=== PATIENT | male | born 1970 | race Asian ===

== ENCOUNTER 2025-08-21 23:31 | Emergency (ER) | payer MEDICAID, SELFPAY ==
[2025-08-21 23:39] VITALS: BP 167/114; PULSE 94; RESP 16; TEMP 37; O2SAT 98; BMI 21.3
--- NOTE | 2025-08-21 23:52 | ED_ITS ---
HPI - Eye Problem General Time Seen by Provider: 23:52 Date Seen: 08/21/25 Chief complaint: Eye Problems Stated complaint: vision is blurry/painful Time Seen by Provider: 08/21/25 23:52 Source: patient, family and spot welder (family interpreting) Mode of arrival: ambulatory History of Present Illness HPI Narrative: Jaspal is a 55-year-old male reports no significant past medical history presents to the emergency department for evaluation of bilateral eye pain and vision changes. Patient presents tonight with his daughter and son-in-law who are interpreting for him. Patient states that he went to bed around 9:00 p.m. feeling fine however woke up around 11:00 p.m. with severe bilateral eye pain and blurry vision. Patient reports he has pain in both of his eyes as well as a sandpaper fraction like pain when he blinks and tries to open his eyes. Patient reports symptoms are improved when closing his eyes. Patient does not were glasses or contacts. Patient also reports he feels as if his face around his eyes is red and swollen. Patient denies any trauma, injury. Denies any headache, neck pain, weakness, paresthesias, chest pain, shortness of breath, abdominal pain, no other complaints. Related Data Home Medications ?Medication ?Instructions ?Recorded ?Confirmed No Known Home Medications 08/21/2512/11 Allergies Allergy/AdvReac Type Severity Reaction Status Date / Time No Known Drug Allergies Allergy Verified 08/21/25 23:47 Review of Systems Narrative: Past medical history, past surgical history, medications, allergies, family history, and social history were reviewed with the patient. No additional pertinent items. A medically appropriate review of systems was performed with pertinent positives and negatives noted in HPI, all other systems negative. Exam Narrative: Exam Narrative: General: Afebrile, in distress secondary to pain HEENT: Normocephalic, atraumatic, Bilateral eyes and surrounding area with erythema, swelling, teary/watery eyes bilaterally, chemosis of conjunctiva, no evidence of foreign body. PERRL, EOMI, no worsening pain with EOM. Neck: non-tender, supple Cardio: regular rate. regular rhythm Resp: Normal work of breathing, no respiratory distress, lungs clear bilaterally, no wheezing, rhonchi, rales Chest/Back: no visual signs of trauma, no midline tenderness, no CVA tenderness Abdomen: soft, non distension, no tenderness, no peritoneal signs Neuro: alert and fully oriented. CN II-XII grossly intact. Grossly normal strength and sensation in all extremities. MSK: no deformities. Normal range of motion Integumentary/Skin: no rash visualized, normal color Psych: normal affect, normal behavior Const: Vital Signs, click to edit/add: Vital Signs - 24 hr 08/21/25 23:39 Temperature 98.6 F Pulse Rate [Pulse Oximeter] 94 Respiratory Rate 16 Blood Pressure [Ri t Upper Arm] 167/114 H Pulse Oximetry 98 Oxygen Delivery Me thod Room Air Course Vital Signs Vital signs: Initial Vital Signs Temperature 98.6 F 08/21/25 23:39 Temperature Source Temporal Artery Scan 08/21/25 23:39 Pulse Rate 94 08/21/25 23:39 Respiratory Rate 16 08/21/25 23:39 Blood Pressure 167/114 H 08/21/25 23:39 Blood Pressure Mean 131 H 08/21/25 23:39 Blood Pressure Position Sitting 08/21/25 23:39 Pulse Oximetry 98 08/21/25 23:39 Oxygen Delivery Method Room Air 08/21/25 23:39 Vital Signs Temperature 98.6 F 08/21/25 23:39 Pulse Rate 94 08/21/25 23:39 Respiratory Rate 16 08/21/25 23:39 Blood Pressure 167/114 H 08/21/25 23:39 Pulse Oximetry 98 08/21/25 23:39 Oxygen Delivery Method Room Air 08/21/25 23:39 Temperature 98.6 F 08/21/25 23:39 Pulse Rate 94 08/21/25 23:39 Respiratory Rate 16 08/21/25 23:39 Blood Pressure 167/114 H 08/21/25 23:39 Pulse Oximetry 98 08/21/25 23:39 Oxygen Delivery Method Room Air 08/21/25 23:39 MDM - Eye Problem MDM Narrative Medical decision making narrative: Jaspal is a 55-year-old male reports no significant past medical history presents to the emergency department for evaluation of bilateral eye pain and vision changes. Upon arrival patient is ill but nontoxic appearing, afebrile, in distress. Patient hypertensive upon arrival with blood pressure 167/114, heart rate 94, oxygen 98% on room air. Differential diagnosis includes but is not limited to viral conjunctivitis versus allergic conjunctivitis versus dry eye versus uveitis versus corneal abrasion versus marine structural welder's photo keratitis among others. Symptoms are bilateral in nature. On physical exam patient with eyelid and facial erythema and edema as well as tearing, chemosis, blurry vision. Patient was treated with tetracaine upon arrival with significant improvement of pain. On fluorescein staining there is bilateral superficial difuse punctate keratitis. 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 Patient reports feeling fine until suddenly waking up with severe eye pain, blurry vision, as well as that Gritty/friction/foreign body sensation. (Delayed symptoms also consistent with welders photokeratitis). Patient was treated with a dose of oxycodone, flurbiprofen as well as erythromycin ophthalmic ointment. I did attempt to page the on-call centrifugal spinner at [facility] however did not return a call back. Patient and family feel comfortable discharge home, discussed con tinued supportive care and symptoms should improve over the next few days. Recommend following up with Ophthalmology in clinic for complete/formal eye examination later today. Since I was unable to get in touch with Ophthalmology Clinic at 0100am patient and family feel comfortable with discharge and will call the clinic 1st thing in the morning to arrange a follow-up appointment. Will continue erythromycin ophthalmic ointment every 6 hours for the next 3-5 days (or otherwise instructed by Ophthalmology). Strict return precautions discussed. Patient and family understand agree with plan. Medical Records Attestation: I reviewed the patient's medical records. Discharge Plan Discharge Clinical Impression: Pain of both eyes, Blurred vision, bilateral, Welders' keratitis of both eyes Patient Disposition: Home, Self-Care Condition: Improved Additional Instructions: Please follow-up at [facility] later today for follow-up in complete eye examination. We were unable to get a hold of them this morning so please call the clinic when they open at 8:00 a.m. to make an appointment. Let them know you were in the emergency department overnight and needed a follow-up appointment/eye examination. [phone] Please alternate taking Tylenol 1000 mg and ibuprofen 600 mg every 6 hours as needed for pain. Please apply antibiotic ointment to both eyes 4 times a day (every 6 hours) for the next 3-5 days or as otherwise instructed by Ophthalmology. Please return to the emergency department if any worsening symptoms. Please make sure you wear safety goggles while you work. It was a pleasure taking care of you today. We hope you feel better soon. Prescriptions: No Action No Known Home Medications Stand Alone Forms: [employer] Info Instructions
--- NOTE | 2025-08-22 00:20 | ED.NURSE ---
Visual acuity performed on pt (before eye drops) and pt could not see anything on the eye chart, out of either eye. Visual acuity performed on pt after eye drops and pt could not see anything on the eye chart.
--- OUTSIDE RECORDS SUMMARY | 2025-08-22 00:37 | XMS_ITS | Encounter Summary ---
Author Organization [employer] Address [address] [place] [id number] Care Team Providers Care Scraper Meat Name Role Phone Jude Zaman MD Unavailable Ted Rapp MD Unavailable [phone] Desirae Elam MD Primary Care Provider [phone] Saleem Bush MD Unavailable [phone] Desirae Elam MD Unavailable Gianna Pascual MD Unavailable Desirae Elam MD Unavailable Encounter Details Date Type Department Care Team (Late st Contact Info) Description 02/19/2009 Records - [facility] CONVERSION Scan, Non-Provider Social History Tobacco Use Types Packs/Day Years Used Date Smoking Tobacco: Never Assessed Sex and Gender Information Value Date Recorded Sex Assigned at Not on file Legal Sex Male 5:38 PM CDT Gender Identity Not on file Sexual Orientation Not on file documented as of this encounter Plan of Treatment Not on file documented as of this encounter Visit Diagnoses Not on filedocumented in this encounter Care Teams Scraper Meat Relationship Specialty Start Date End Date Desirae Elam MD [address] [place] [address] PCP - General Family Practice 01/22/15 Jude Zaman [place] [facility] [place] [id number] Assigned Surgical Provider 04/03/21 Ted Rapp MD [address] [place] [id number] Assigned PCP 03/04/21 01/30/22 Saleem Bush MD [address] [place] [id number] Assigned PCP 01/31/22 10/22/22 Desirae Elam MD [address] [place] [id number] Assigned PCP 10/23/22 05/10/24 Gianna Pascual MD [address] [place] [id number] Assigned PCP 05/11/24 05/10/25 Desirae Elam MD [address] [place] [id number] Assigned PCP 05/11/25 documented as of this encounter
--- OUTSIDE RECORDS SUMMARY | 2025-08-22 00:37 | XMS_ITS | Encounter Summary ---
Author Organization [facility] Address [address] [place] [address] Care Team Providers Care Pierce And Shave Press Operator Name Role Phone Jude Zaman MD Unavailable Ted Rapp MD Unavailable [phone] Desirae Elam MD Primary Care Provider [phone] Saleem Bush MD Unavailable [phone] Desirae Elam MD Unavailable Gianna Pascual MD Unavailable Desirae Elam MD Unavailable Encounter Details Date Type Department Care Team (Late st Contact Info) Description 02/23/2021 Records - [facility] CONVERSION Scan, Non-Provider Social History Tobacco Use Types Packs/Day Years Used Date Smoking Tobacco: Never Smokeless Tobacco: Never Alcohol Use Standard Drinks/Week Comments No 0 (1 standard drink = 0.6 oz pur e alcohol) PHQ-2 Answer Date Recorded PHQ-2 Score 0 04/09/2020 Sex and Gender Information Value Date Recorded Sex Assigned at Not on file Legal Sex Male 5:38 PM CDT Gender Identity Not on file Sexual Orientation Not on file documented as of this encounter Plan of Treatment Not on file documented as of this encounter Procedures Procedure Name Priority Date/Time Associated Diagnosis Comments AUDIOGRAM/ABR/OAE/TYPM - HIM SCAN 02/23/2021 documented in this encounter Results * AUDIOGRAM/ABR/OAE/TYPM - HIM SCAN (02/23/2021) us Historical Provider PROCEDURES Final Result documented in this encounter Visit Diagnoses Not on filedocumented in this encounter Care Teams Pierce [employer] Shave Press Operator Relationship Specialty Start Date End Date Desirae Elam MD [address] [place] [phone] PCP - General Family Practice 01/22/15 Jude Zaman MD [address] [place] [address] Assigned Surgical Provider 04/03/21 Ted Rapp MD [address] [place] [phone] Assigned PCP 03/04/21 01/30/22 Saleem Bush MD [address] [place] [id number] Assigned PCP 01/31/22 10/22/22 Desirae Elam MD [address] [place] [id number] Assigned PCP 10/23/22 05/10/24 Gianna Pascual MD [address] [place] [address] [id number] Assigned PCP 05/11/24 05/10/25 Desirae Elam MD [address] [place] [id number] Assigned PCP 05/11/25 documented as of this encounter
--- OUTSIDE RECORDS SUMMARY | 2025-08-22 00:37 | XMS_ITS | Clinical Summary ---
Author Organization Portal Address [address] [place] [address] Care Team Providers Care Cloth Shearer Name Role Phone Desirae Elam MD Primary Care Provider [phone] Desirae Elam MD Unavailable Allergies No known active allergies Medications acetaminophen (TYLENOL) 500 MG tabletIndication s:Chronic low back pain, unspecified back pain laterality, unspecified whether sciatica present Take 2 tablets (1,000 mg) by mouth every 6 hours as needed for mild pain 200 tablet 2 10/15/2022 Active vitamin D3 (CHOLECALCIFEROL ) 50 mcg (2000 units) tabletIndication s:Vitamin D deficiency Take 1 tablet (50 mcg) by mouth daily 90 tablet 4 11/09/2023 Active Active Problems Problem Noted Date Diagnosed Date Hyperlipidemia LDL goal <130 03/02/2018 Headache 02/09/2017 H/O traumatic brain injury 10/09/2015 Vitamin D Deficiency Overview (03/20/2021): Created by [employer] updated for latest IMO load Memory Lapses Or Loss Overview (03/20/2021): Created by [employer] [facility] Annotation: Dec 08 2010 1:58PM - Jacqueline Thorne: Refered to Traumatic Brain Injury clinic for eval Post-traumatic Stress Disorder Overview (03/03/2021): Created by [employer] Upper Back Pain (Between Shoulder Blades) Overview (03/03/2021): Created by Conversion Lower Back Pain Chronic Overview (03/03/2021): Created by [employer] Resolved Problems Problem Noted Date Diagnosed Date Resolved Date Pituitary adenoma 02/09/2017 10/15/2022 ED (erectile dysfunction) 02/09/2017 Immunizations Immunization Administration Dates Next Due COVID-19 12+ (Pfizer) 11/09/2023 COVID-19 Bivalent 12+ (Pfizer) 08/28/2022 COVID-19 MONOVALENT 12+ (Pfizer) 08/07/2021 COVID-19 Monovalent 18+ (Moderna) 12/31/2020, Flu, Unspecified 06/19/2013, 1,06/25/2010,2009 Hepatitis A (VAQTA)(ADULT 19+) 08/09/2013 Hepatitis A Immunity: Titer/MD Dx 01/24/2015 Hepatitis B Immunity: Titer 01/22/2015 Influenza (H1N1) 10/09/2009 Influenza Vaccine (Flucelvax Quadrivalent) 09/07/2021 Influenza Vaccine 18-64 (Flublok) 10/15/2022 Influenza Vaccine >6 months,quad, PF 06/08/2019, 07/19/2018,06/26/2016 Influenza Vaccine, 6+MO IM (QUADRIVALENT W/PRESERVATIVES) 08/10/2017,07/31/2015,06/28/2014,2011 MMR (MMRII) 09/02/2011 TDAP (Adacel,Boostrix) 10/15/2022,2021(Deferred: Other refusal),03/24/2009 Td,adult,historic,unspecified 09/02/2011 Typhoid IM 10/15/2022 Family History Medical History Relation Comments No Known Problems Brother No Known Problems Father No Known Problems Mother No Known Problems Sister Cancer No family hx of Diabetes No family hx of Heart Disease No family hx of Hyperlipidemia No family hx of Hypertension No family hx of Kidney Disease No family hx of Relation Status Comments Brother Father Mother Sister Social History Tobacco Use Types Packs/Day Years Used Date Smoking Tobacco: Never Smokeless Tobacco: Never Alcohol Use Standard Drinks/Week Comments No 0 (1 standard drink = 0.6 oz pur e alcohol) PHQ-2 Answer Date Recorded PHQ-2 Score 0 11/09/2023 Adolescent Education Answer Date Record ed Getting School Help Needed Not on file 06/11 Sex and Gender Information Value Date Recorded Sex Assigned at Not on file Legal Sex Male 5:38 PM CDT Gender Identity Not on file Sexual Orientation Not on file Last Filed Vital Signs Vital Sign Reading Time Taken Comments Blood Pressure 123/83 11/09/2023 7:15 AM LITHOGRAPHER HELPER Pulse 75 11/09/2023 7:15 AM LITHOGRAPHER HELPER Temperature 37 C (98.6 F) 11/09/2023 7:15 AM LITHOGRAPHER HELPER Respiratory Rate 18 11/09/2023 7:15 AM LITHOGRAPHER HELPER Oxygen Saturation 98% 11/09/2023 7:15 AM LITHOGRAPHER HELPER Inhaled Oxygen Concentration - - Weight 51.3 kg (113 lb) 11/09/2023 7:15 AM LITHOGRAPHER HELPER Height 156.7 cm (5' 1.69) 11/09/2023 7:15 AM CS T Body Mass Index 20.87 11/09/2023 7:15 AM LITHOGRAPHER HELPER Plan of Treatment Health Maintenance Due Date Last Done Comments CT COLONOGRAPHY 1972 FIT 1972 FLEX SIG 1972 PNEUMOCOCCAL VACCINE 50+ YEARS (1 of 1 - PCV) 2022 ZOSTER VACCINE (1 of 2) 2022 COLONOSCOPY 10/04/2023 10/04/2013 YEARLY PREVENTIVE VISIT 10/15/2023 10/15/19 23, 01/22/2015, 01/22/2015 PHQ-2 (once per calendar year) 2024 11/09/2023, 10/15/2022, 01/21/2022, Additional history exists ANNUAL REVIEW OF HM ORDERS 11/09/2024 11/09/2023, LIPID 11/09/2024 11/09/2023, 05/0 01/2022, 02/09/2017, Additional history exists COVID-19 VACCINE ( season) 2025 11/09/2023, 08/28/2022, 08/07/2021, Additional history exists INFLUENZA VACCINE (#1) 2025 , 09/07/2021, 06/08/2019, Additional history exists DIABETES SCREENING 11/09/2026 11/09/2023, 0 11/09/2023, 01/21/2022, Additional history exists COLORECTAL CANCER SCREENING 06/25/2027 sDNA (Cologuard) 06/25/2027 06/25/2024, , 12/12/2023 ADVANCE CARE PLANNING 10/17/2027 10/17/2022 DTAP/TDAP/TD VACCINE (4 - Td or Tdap) 10/15/2032 10/15/2022, 09/02/2011, 03/24/2009 HEPATITIS B VACCINE Discontinued 01/22/2015 HEPATITIS C SCREENING Completed 10/09/2015, 009 HIV SCREENING Completed 01/21/2022 HPV VACCINE (No Doses Required) Completed MENINGITIS VACCINE Aged Out No longer eligible based on patient's age to complete this topic Procedures Procedure Name Priority Date/Time Associated Diagnosis Comments COLOGUARD(Moki [employer] formerly [employer]) Routine 12/12/2023 7:30 AM CDT Screen for colon cancer HEMOGLOBIN A1C Routine 11/09/2023 8:19 AM LITHOGRAPHER HELPER Unintended weight loss LIPID REFLEX TO DIRECT LDL PANEL Routine 11/09/2023 8:19 AM LITHOGRAPHER HELPER Hyperlipidemia LDL goal <130 HIV ANTIGEN ANTIBODY COMBO Routine 01/21/2022 2:49 PM CDT Screening for HIV (human immunodeficiency virus) HEPATITIS C ANTIBODY Routine 10/09/2015 10:25 AM LITHOGRAPHER HELPER COLONOSCOPY Routine 10/04/2013 12:00 AM LITHOGRAPHER HELPER from Last 3 Months or Most Recently Relevant to Health Maintenance Results * COLOGUARD(Moki - formerly [employer]) (12/12/2023 7:30 AM CDT) COLOGUARD-ABSTRACT Negative Negative 2023 2:26 AM CDT [facility] (CLIA #:[id number]) Comment: NEGATIVE TEST RESULT. A negative Cologuard result indicates a low likelihood that a colorectal cancer (CRC) or advanced adenoma (adenomatous polyps with more advanced pre-malignant features) is present. The chance that a person with a negative Cologuard test has a colorectal cancer is less than 1 in 1500 (negative predictive value >99.9%) or has an advanced adenoma is less than 5.3% (negative predictive value 94.7%). These data are based on a prospective cross-sectional study of 10,000 individuals at average risk for colorectal cancer who were screened with both Cologuard and colonoscopy. (Myra Briggs et al, N Engl J Med 2014;370(14):6402-6110) The normal value (reference range) for this assay is negative. COLOGUARD RE-SCREENING RECOMMENDATION: Periodic colorectal cancer screening is an important part of preventive healthcare for asymptomatic individuals at average risk for colorectal cancer. Following a negative Cologuard result, the [place] [employer] and U.S. Multi-Society Task Force screening guidelines recommend a Cologuard re-screening interval of 3 years. References: [place] [employer] Guideline for Colorectal Cancer Screening: https://www.cancer.org/cancer/jkaoh-jfztfk-jgbvfb/ickgltncc-nunttdofb-swtmmpk/ac s-rec ommendations.html.; Horace DK, Jameson GAY, Fernanda AnnK, Colorectal Cancer Screening: Recommendations for Physicians and Patients from the U.S. Multi-Society Task Force on Colorectal Cancer Screening , Am J Gastroenterology 2017; 112:1820-4282. TEST DESCRIPTION: Composite algorithmic analysis of stool DNA-biomarkers with hemoglobin immunoassay. Quantitative values of individual biomarkers are not reportable and are not associated with individual biomarker result reference ranges. Cologuard is intended for colorectal cancer screening of adults of either sex, 45 years or older, who are at average-risk for colorectal cancer (CRC). Cologuard has been approved for use by the U.S. FDA. The performance of Cologuard was established in a cross sectional study of average-risk adults aged 50-84. Cologuard performance in patients ages 45 to 49 years was estimated by sub-group analysis of near-age groups. Colonoscopies performed for a positive result may find as the most clinically significant lesion: colorectal cancer [4.0%], advanced adenoma (including sessile serrated polyps greater than or equal to 1cm diameter) [20%] or non- advanced adenoma [31%]; or no colorectal neoplasia [45%]. These estimates are derived from a prospective cross-sectional screening study of 10,000 individuals at average risk for colorectal cancer who were screened with both Cologuard and colonoscopy. (Myra Mcdowell al, N Engl J Med 2014;370(14):6059-1060.) Cologuard may produce a false negative or false positive result (no colorectal cancer or precancerous polyp present at colonoscopy follow up). A negative Cologuard test result does not guarantee the absence of CRC or advanced adenoma (pre-cancer). The current Cologuard screening interval is every 3 years. ([place] [employer] and U.S. Multi-Society Task Force). Cologuard performance data in a 10,000 patient pivotal study using colonoscopy as the reference method can be accessed at the following location: www.[employer]/results. Additional description of the Cologuard test process, warnings and precautions can be found at www.[employer].Couple. Stool specimen (specimen) 12/12/2023 7:30 AM CDT 12/13/2023 8:06 AM CDT us Gianna Pascual MD LABORATORY Final Result [facility] [address] [place] [address], [facility] [phone] [facility] (CLIA #:[id number]) [address] [place] [address] * (ABNORMAL) Lipid panel reflex to direct LDL Non-fasting (11/09/2023 8:19 AM LITHOGRAPHER HELPER) Cholesterol 230(H) <200 mg/dL 11/09/2023 7:41 PM LITHOGRAPHER HELPER [facility] Triglycerides 41 <150 mg/dL 11/09/2023 7:41 PM LITHOGRAPHER HELPER [facility] Direct Measure HDL 69 >=40 mg/dL 11/09/2023 7:41 PM LITHOGRAPHER HELPER [facility] LDL Cholesterol Calculated 153(H) <=100 mg/dL 11/09/2023 7:41 PM LITHOGRAPHER HELPER [facility] Non HDL Cholesterol 161(H) <130 mg/dL 11/09/2023 7:41 PM LITHOGRAPHER HELPER [facility] Patient Fasting > 8hrs? Yes 11/09/2023 7:41 PM LITHOGRAPHER HELPER [facility] Blood STRUCTURE OF LEFT UPPER LIMB / Unknown Venipuncture / Unknown 11/09/2023 8:19 AM LITHOGRAPHER HELPER 11/09/2023 8:19 AM LITHOGRAPHER HELPER Narrative [facility] - 11/09/2023 7:41 PM LITHOGRAPHER HELPER Cholesterol Desirable: <200 mg/dL Triglycerides Normal: Less than 150 mg/dL Borderline High: 150-199 mg/dL High: 200-499 mg/dL Very High: Greater than or equal to 500 mg/dL Direct Measure HDL Female: Greater than or equal to 50 mg/dL Male: Greater than or equal to 40 mg/dL LDL Cholesterol Desirable: <100mg/dL Above Desirable: 100-129 mg/dL Borderline High: 130-159 mg/dL High: 160-189 mg/dL Very High: >= 190 mg/dL Non HDL Cholesterol Desirable: 130 mg/dL Above Desirable: 130-159 mg/dL Borderline High: 160-189 mg/dL High: 190-219 mg/dL Very High: Greater than or equal to 220 mg/dL Gianna Pascual MD LAB - BLOOD ORDLaura RENTERIA Final Result [facility] [address] [facility], [address] [id number], [facility] [phone] * Hemoglobin A1c (11/09/2023 8:19 AM LITHOGRAPHER HELPER) Hemoglobin A1C 5.2 0.0 - 5.6 % 11/09/2023 8:25 AM LITHOGRAPHER HELPER [facility] Comment: Normal <5.7% Prediabetes 5.7-6.4% Diabetes 6.5% or higher Note: Adopted from ADA consensus guidelines. Blood STRUCTURE OF LEFT UPPER LIMB / Unknown Venipuncture / Unknown 11/09/2023 8:19 AM LITHOGRAPHER HELPER 11/09/2023 8:19 AM LITHOGRAPHER HELPER Gianna Pascual MD LAB - BLOOD MINH RENTERIA Final Result Performing Organization Address City/[facility]/ZIP Co de Phone Number [facility] [address] [address], [facility] * HIV Antigen Antibody Combo (01/21/2022 2:49 PM CDT) HIV Antigen Antibody Combo Negative Negative 01/21/2022 9:21 PM CDT [facility] Blood STRUCTURE OF LEFT UPPER LIMB / Unknown Venipuncture / Unknown 01/21/2022 2:49 PM CDT 01/21/2022 2:49 PM CDT us Saleem Bush MD LAB - BLOOD ORDERABLES Final Re sult Performing Organization Address [facility] Co de Phone Number [facility] [address] [address], [facility] [phone] * Hepatitis C antibody (10/09/2015 10:25 AM LITHOGRAPHER HELPER) Pathologist [facility] [place] Hepatitis C Antibody Negative Negative 10/10/2015 9:22 AM LITHOGRAPHER HELPER [facility] Blood specimen (specimen) Venipuncture / Unknown 10/09/2015 10:25 AM LITHOGRAPHER HELPER 10/09/2015 7:12 PM LITHOGRAPHER HELPER us Desirae Elam MD LAB - BLOOD ORDERABLES Final Res ult Performing Organization Address [facility] Co de Phone Number [facility] [address] [address], [facility] [address] [address] * COLONOSCOPY (10/04/2013 12:00 AM LITHOGRAPHER HELPER) 10/04/2013 us Historical Provider PROCEDURES Final Result from Last 3 Months or Most Recently Relevant to Health Maintenance Insurance [facility] Care Teams Cloth Shearer Relationship Specialty Start Date End Date Desirae Elam MD [address] [place] [id number] PCP - General Family Practice 01/22/15 Desirae Elam MD [address] [place] [id number] Assigned PCP 05/11/25
[2025-08-22] MEDS: IBUPROFEN 200 MG TABLET 600 MG PO (00:48)
== END 2025-08-22 01:38 | disposition home or self-care (01) ==
PROVIDERS: Emergency Provider Emergency Medicine
DX: H16.133 Photokeratitis, bilateral (principal)
CPT/HCPCS: 99283; 99285; A9270